=== PATIENT | female | born 1955 | race Caucasian/White ===

== ENCOUNTER → 2017-08-17 | Outpatient (CLI) | payer OTHER ==
[~2017-08-17] MED LIST: ALBINS/ INH; MISCCAP80 PO; MULT-506 PO; OMEG10007 PO; VNTHFA/IN INH
--- NOTE | 2017-08-17 13:21 | DIAGNOSTIC IMAGING REPORT ---
CHEST 2 VIEWS ROUTINE CLINICAL HISTORY: Acute exacerbation of asthma COMPARISON STUDY: No previous studies for comparison. FINDINGS: The cardiac and mediastinal contours are normal. There is no evidence of focal pulmonary consolidation. There is no evidence of failure. No pleural effusions are visualized.[ IMPRESSION: No active disease in the chest. Electronically signed by: Kyle Lo M.D. 08/17/2017 1:20 PM Dictated Date/Time: 08/17/2017 1:20 PM
== END | disposition home or self-care (01) ==
LOC: C.RAD 12:09
PROVIDERS: ATTEND Family Medicine
DX: J45.901 Unspecified asthma with (acute) exacerbation (principal)

== ENCOUNTER → 2017-09-09 | Outpatient (CLI) | payer OTHER ==
--- NOTE | 2017-09-09 16:18 | DIAGNOSTIC IMAGING REPORT ---
CHEST 2 VIEWS ROUTINE CLINICAL HISTORY: INFLUENZA,SINUS,ASTHMA COMPARISON STUDY: 08/17/2017 FINDINGS: The cardiac and mediastinal contours are normal. There is no evidence of focal pulmonary consolidation. There is no evidence of failure. No pleural effusions are visualized.[Mild upper lobe emphysema is suspected. IMPRESSION: No active disease in the chest. Electronically signed by: Kyle Lo M.D. 09/09/2017 4:17 PM Dictated Date/Time: 09/09/2017 4:16 PM
== END | disposition home or self-care (01) ==
LOC: C.RAD1850 15:58
PROVIDERS: ATTEND Family Medicine
DX: J11.1 Influenza due to unidentified influenza virus with other respiratory manifestations (principal); J45.909 Unspecified asthma, uncomplicated; J32.9 Chronic sinusitis, unspecified